=== PATIENT | female | born 1935 | race Caucasian/White ===

== ENCOUNTER 2017-12-03 12:10 | Inpatient (IN) | payer OTHER ==
[~2017-12-03] VITALS: Ht 154.9 cm; Wt 62.2 kg
[2017-12-03] VITALS (20 sets, daily range): BP systolic 72–117; BP diastolic 30–195
[2017-12-03] MEDS: LEVOFLOXACIN 250 MG/D5 PREMIX 50 ML IV SCH (00:20)
[~2017-12-03 12:10] MED LIST: LEVOFLOXACIN 500 MG/D5W PREMIX 100 ML IV SCH
--- NOTE | 2017-12-03 12:20 | NUR ---
Pt BIB ambulance in [facility] for breathing issue, pt is aphasic. Pt has G-tube. Pt is altered x 2 days. Pt has trach, She has swelling on arm, non-pitting. Diaz cath was inserted. BP 95/35, O2 98%, HR 110, RR 35. YANELY Mtz and YANELY Melendez at bedside.
[2017-12-03] MEDS ORDERED: NACL 0.9% 1,500 ML IV SCH (12:28)
[2017-12-03] MEDS ORDERED: OSELTAMIVIR PHOSPHATE 75 MG CAP GT ONE (12:30)
[2017-12-03] MEDS ORDERED: ACETAMINOPHEN 650 MG/20.3 ML UDC GT ONE (12:30)
[2017-12-03] MEDS ORDERED: PIPERACILLIN/TAZOBACTAM 3.375 GM in DEXTROSE 5% 50 ML IV ONE (12:30)
--- NOTE | 2017-12-03 12:30 | NUR ---
# 16 FR Diaz catheter with 10 ml utilizing sterile technique. Immediate return of 10 ml yellow urine noted. Bedside drainage bag placed below level of bladder. Urine sample collected and sent to lab. Pt tolerated procedure well.
[2017-12-03] MEDS ORDERED: ACET-2869 PO (12:38)
[2017-12-03] MEDS ORDERED: PROC4I SUBQ (12:38)
[2017-12-03] MEDS ORDERED: FERR325E14 GT (12:38)
[2017-12-03] MEDS ORDERED: CAPT25TA10 GT (12:39)
[2017-12-03] MEDS ORDERED: AMLO10TA GT (12:39)
[2017-12-03] MEDS ORDERED: HEPA500056 SQ (12:39)
[2017-12-03] MEDS ORDERED: DOCU-299 GT (12:39)
[2017-12-03] MEDS ORDERED: MIRABULK GT (12:39)
[2017-12-03] MEDS ORDERED: ONDA4TAB GT (12:39)
[2017-12-03] MEDS ORDERED: MULT-153 GT (12:39)
[2017-12-03] MEDS ORDERED: CRAN1TAB3 GT (12:39)
[2017-12-03] MEDS ORDERED: ASCO500T45 GT (12:39)
[2017-12-03] MEDS ORDERED: ACET-2619 GT (12:39)
[2017-12-03] MEDS ORDERED: DOXY100C9 GT (12:39)
[2017-12-03] MEDS ORDERED: VITD1000 GT (12:39)
[2017-12-03] MEDS ORDERED: PIPERACILLIN/TAZOBACTAM 3.375 GM VIAL IV ONE (12:57)
--- NOTE | 2017-12-03 13:00 | NUR ---
XRAY AT BEDSIDE.
[2017-12-03 13:20] LABS: MEAN CORPUSCULAR HEMOGLOBIN 32 pg (27-31); MEAN CORPUSCULAR HGB CONC 33 g/dL (33-37); MEAN CORPUSCULAR VOLUME 99 fL (80-94); PLATELET COUNT (AUTO) 178 K/uL (140-450); RED BLOOD CELL COUNT(AUTO) 1.92 MIL/uL (4.20-5.40); RED CELL DISTRIBUTION WIDTH 17.6 % (11.6-13.7); WHITE BLOOD COUNT (AUTO) 9.2 K/uL (4.8-10.8)
--- NOTE | 2017-12-03 13:30 | NUR ---
PT BP CONTINUES TO BE IN THE 80'S/30'S; ER MD DR. ARCE NOTIFIED; WILL CONTINUE TO MONITOR.
[2017-12-03 13:40] LABS: HEMOGLOBIN 6.2 g/dL (12.0-16.0)
[2017-12-03 13:42] LABS: LYMPHOCYTES % (MANUAL) 6 % (20-46); MONOCYTES % (MANUAL) 5 % (5-12)
--- NOTE | 2017-12-03 13:53 | NUR ---
PT TAKEN TO CT VIA [facility] ACCOMPANIED BY VIN PATEL AND JUAREZ [place].
--- NOTE | 2017-12-03 14:14 | NUR ---
EFRAIN ARCE AT BEDSIDE FOR CENTRAL LINE INSERTION; CONSENT SIGNED BY EFRAIN VICTORIA AND RN.
[2017-12-03 14:50] LABS: APPEARANCE,URINE HAZY (CLEAR); BILIRUBIN,URINE NEGATIVE (NEGATIVE); BLOOD, URINE TRACE-I (NEGATIVE); COLOR,URINE YELLOW (YELLOW); LEUKOCYTE ESTERASE ,URINE NEGATIVE (NEGATIVE); NITRITE, URINE NEGATIVE (NEGATIVE); UGLUCOSE NEGATIVE (NEGATIVE)
[2017-12-03 15:03] LABS: RBC,URINE 3-10 (FEW) /HPF (0-5); WBC,URINE 0-5 (RARE) /HPF (0-5)
--- NOTE | 2017-12-03 15:10 | NUR ---
PT APPEARS TO BE RESTING COMFORTABLY IN BED; RR EVEN/UNLABORED; POSITIONED FOR COMFORT; WILL CONTINUE TO MONITOR.
[2017-12-03] MEDS ORDERED: NACL 0.9% 1,000 ML IV ONE (15:55)
[2017-12-03 16:15] LABS: ALBUMIN 0.8 g/dL (3.4-5.0); ANION GAP 13.3 (8-16); ASPARTATE AMINOTRANSFERASE 36 U/L (15-37); CARBON DIOXIDE 33.6 mmol/L (21-32); CHLORIDE 126 mmol/L (98-107); CREATININE 0.8 mg/dL (0.6-1.3); GLUCOSE 265 mg/dL (74-106); TOTAL BILIRUBIN 0.2 mg/dL (0.0-1.0)
[2017-12-03 16:18] LABS: POTASSIUM 2.9 mmol/L (3.5-5.1); SODIUM SERUM 170 mmol/L (136-145); UREA NITROGEN, BLOOD 93 mg/dL (7-18)
--- NOTE | 2017-12-03 16:49 | NUR ---
DR. GRUBBS AT BEDSIDE FOR CENTRAL LINE INSERTION; CONSENT SIGNED BY PT'S SON, YANELY PIZARRO AND DR. GRUBBS.
--- NOTE | 2017-12-03 17:37 | NUR ---
Patient will be admitted to care of DR. CHRISTIAN. Admited to ICU. Will go to room ICU 1. Belongings list completed. Report to RALPH [place] AT BEDSIDE.
--- NOTE | 2017-12-03 17:54 | NUR ---
PT TRANSFERRED FROM ER TO ICU VIA [facility] X 2 ASSISTS. PT IS LETHARGIC, NONVERBAL, UNABLE TO MAKE NEEDS KNOWN AND DOES NOT FOLLOW COMMANDS. NORMAL SINUS RHYTHM ON MONITOR. BP 82/36. TRACH TO O2 AT 5 L/MIN. NO SOB NOTED. RHONCHI AUSCULTATED ON BL UPPER LOBES, LOWER LOBES DIMINISHED. CENTRAL LINE TO RIGHT EJ TLC INTACT. PERIPHERAL LINE G22 TO RIGHT FOREARM ASYMPTOMATIC AND INTACT. ABDOMEN SOFT, NON DISTENDED, HYPOACTIVE BOWEL SOUNDS PRESENT. G-TUBE IN PLACE. GOVEA CATH IN PLACE DRAINING URINE TO GRAVITY DRAINAGE BAG. EDEMA +3 TO BUE NOTED. OPEN WOUND TO SACRAL AND RIGHT BUTTOCKS, AND DISCOLORATION TO RIGHT HIP NOTED. HOB 30 DEGREES, BED IN LOW POSITION AND CALL LIGHT WITHIN REACH. WILL CONTINUE TO MONITOR.
--- NOTE | 2017-12-03 18:20 | NUR ---
DR. CHRISTIAN MADE AWARE OF DECREASED BP OF 77/36, ABNORMAL CBC AND BMP RESULTS. ORDERS RECEIVED. PHYSICIAN TO SEE PT.
[2017-12-03] MEDS ORDERED: NACL 0.9% 1,000 ML IV SCH (18:35)
[2017-12-03] MEDS ORDERED: KCL 20 MEQ/WATER INJ PREMIX 200 ML IV SCH (18:45)
--- NOTE | 2017-12-03 19:15 | NUR ---
DR. CHRISTIAN IN TO SEE AND EXAMINE PT. WILL FOLLOW UP ON ORDERS.
--- NOTE | 2017-12-03 19:30 | NUR ---
REPORT GIVEN TO LAND MANAGEMENT SUPERVISOR RN FOR CONTINUITY OF CARE. NO ACUTE DISTRESS AT THIS TIME.
--- NOTE | 2017-12-03 19:30 | NUR ---
DR CHRISTIAN OBTAINED CONSENT FOR BLOOD TRANSFUSION OVER THE PHONE, YANELY BUCKLEY WITNESSED.
--- NOTE | 2017-12-03 19:30 | NUR ---
RECEIVED REPORT FROM DAY SHIFT ICU NURSE. PT IS NONVERBAL, AND UNABLE TO FOLLOW COMMANDS. TRACH TO VENT O2 AT 5L. RIGHT IJ TRIPLE LUMEN CENTRAL LINE, INTACT, AND 22G IV TO RIGHT FOREARM. PT HAS GTUBE IN PLACE WITHOUT FEEDINGS AT THE TIME. PT HAS GOVEA CATHETER IN PLACE WITH CLEAR YELLOW URINE IN BAG. EDEMA 3+ TO UPPER EXTREMITIES. PRESSURE ULCERS TO RIGHT BUTTOCK AND SACRUM. NO SIGNS OF DISTRESS NOTED. BED IN LOWEST POSITION, CALL LIGHT WITHIN REACH. WILL CONTINUE TO MONITOR.
[2017-12-03] MEDS: NACL 0.45% 1,000 ML IV SCH (19:55)
--- NOTE | 2017-12-03 20:06 | NUR ---
POTASSIUM NOW INFUSING, PT TOLERATING WELL. WILL CONTINUE TO MONITOR.
[2017-12-03 20:15] LABS: ANION GAP 13.8 (8-16); CARBON DIOXIDE 30.9 mmol/L (21-32); CHLORIDE 127 mmol/L (98-107); CREATININE 0.7 mg/dL (0.6-1.3); GLUCOSE 178 mg/dL (74-106)
[2017-12-03 20:20] LABS: POTASSIUM 2.7 mmol/L (3.5-5.1); SODIUM SERUM 169 mmol/L (136-145); UREA NITROGEN, BLOOD 86 mg/dL (7-18)
--- NOTE | 2017-12-03 20:30 | NUR ---
PLACED ON 40 AREOSOL MIST VIA T-PIECE, SAO2 99%, NO RESP DISTRESS NOTED
[2017-12-03] MEDS ORDERED: POTASSIUM CHL 40 MEQ/ D5-1/2NS 1,000 ML IV SCH (20:55)
--- NOTE | 2017-12-03 21:15 | NUR ---
TITRATED LEVOPHED UP TO 10MCG/MIN, OR 37.5ML/HR DUE TO DECREASED BP OF 76/39.
--- NOTE | 2017-12-03 21:15 | NUR ---
BLOOD TRANSFUSION STARTED. VERIFIED WITH RN CAMERON. WILL MONITOR FOR ANY REACTION, AND MONITOR VITAL SIGNS DURING TRANSFUSION.
--- NOTE | 2017-12-03 22:03 | NUR ---
DECREAES FIO2 TO 35% AEROSOL MIST VIA T-PIECE SAO2 97% RR 14BPM HR 95
--- NOTE | 2017-12-03 23:00 | NUR ---
NO RESIDUAL FROM GTUBE. FLUSHED GTUBE WITH 250ML OF WATER. PT TOLERATED WELL.
--- NOTE | 2017-12-03 23:30 | NUR ---
PAGED DR. CHRISTIAN TO CLARIFY HIS ORDERS; ACCORDING TO HIM JUST TO GIVE ANOTHER 40 MEQ K RIDER CONTINUE THE SAME ON GOING IV FLUID WHICH IS 1/2 NS 100 ML/HR AND TO DISREGARD HIS ORDERS OF D5 1/2 NS WITH KCL.; CARRIED OUT.
[2017-12-03] MEDS ORDERED: VANCOMYCIN PER PHARMACY MC PRN (23:40)
[2017-12-03] MEDS ORDERED: KCL 20 MEQ/WATER INJ PREMIX 200 ML IV ONE (23:45)
--- NOTE | 2017-12-03 23:55 | NUR ---
BLOOD FINISHED TRANSFUSING, PT TOLERATED WELL. NO REACTIONS OCCURRED. NO SIGNS OF DISTRESS NOTED, WILL CONTINUE TO MONITOR.
[2017-12-04] VITALS (95 sets, daily range): BP systolic 70–115; BP diastolic 33–60
[2017-12-04] MEDS ORDERED: VANCOMYCIN HCL 750 MG in DEXTROSE 5% 250 ML IV SCH (00:15)
[2017-12-04 00:29] LABS: ANION GAP 13.6 (8-16); CHLORIDE 125 mmol/L (98-107); CREATININE 0.8 mg/dL (0.6-1.3); GLUCOSE 196 mg/dL (74-106); POTASSIUM 3.6 mmol/L (3.5-5.1)
[2017-12-04] MEDS ORDERED: VANCOMYCIN 1,000 MG VIAL ONE (00:42)
[2017-12-04] MEDS ORDERED: PIPERACILLIN/TAZOBACTAM 2.25 GM VIAL IV ONE (00:42)
[2017-12-04 00:43] LABS: SODIUM SERUM 165 mmol/L (136-145); UREA NITROGEN, BLOOD 82 mg/dL (7-18)
--- NOTE | 2017-12-04 02:00 | NUR ---
NO RESIDUAL FROM GTUBE. FLUSHED GTUBE WITH 250ML OF WATER. PT TOLERATED WELL.
[2017-12-04] MEDS: NOREPINEPHRINE 4 MG in DEXTROSE 5% 250 ML IV PRN ×4 (02:23→23:18)
[2017-12-04] MEDS ORDERED: THERAHONEY GEL 42.5 GM TP PRN (03:00)
[2017-12-04] MEDS ORDERED: HYDRAGUARD CREAM TP PRN ×2 (03:00→07:28)
--- NOTE | 2017-12-04 03:55 | NUR ---
RADHA BLOOD FROM CENTRAL LINE FOR MEAT GRADER, PT TOLERATED WELL. PT STABLE, NO SIGNS OF DISTRESS NOTED. WILL CONTINUE TO MONITOR.
[2017-12-04 04:44] LABS: CARBON DIOXIDE 29.1 mmol/L (21-32); CHLORIDE 123 mmol/L (98-107); CREATININE 0.7 mg/dL (0.6-1.3); GLUCOSE 221 mg/dL (74-106); POTASSIUM 3.1 mmol/L (3.5-5.1)
--- NOTE | 2017-12-04 04:50 | NUR ---
SACRAL ULCER [id number], TUNNELING 1.5CM, UNDERMINING 3CM. RIGHT BUTTOCKS ULCER. 7CM, 9.5CM, TUNNELING 2.8, AND UNDERMINING 2.2CM. WOUND CLEANED AND DRESSING CHANGED AGAIN.
[2017-12-04] MEDS: NACL 0.45% 1,000 ML IV SCH (04:59)
--- NOTE | 2017-12-04 05:08 | NUR ---
NO RESIDUAL FROM GTUBE. FLUSHED GTUBE WITH 250ML OF WATER. PT TOLERATED WELL.
[2017-12-04 05:16] LABS: SODIUM SERUM 162 mmol/L (136-145)
[2017-12-04 05:17] LABS: UREA NITROGEN, BLOOD 74 mg/dL (7-18)
[2017-12-04] MEDS: DEXTROSE 5% IV SCH ×3 (06:14)
[2017-12-04] MEDS: TAZOBACTAM IV SCH ×3 (06:14)
[2017-12-04] MEDS: PIPERACILLIN IV SCH ×3 (06:14)
--- NOTE | 2017-12-04 06:20 | NUR ---
INFUSING SECOND 40MEQ'S OF K-RIDERS DOCTOR ORDERED BECAUSE LATEST POTASSIUM IS 3.1. WILL CONTINUE TO MONITOR.
--- NOTE | 2017-12-04 07:21 | NUR ---
ENDORSED PT TO DAY SHIFT NURSE FOR CONTINUITY OF CARE AT THIS TIME. NO S/S OF DISTRESS.
--- NOTE | 2017-12-04 07:30 | NUR ---
RECEIVED REPORT FROM NIGHT NURSE. PT IS NONVERBAL, UNABLE TO FOLLOW COMMANDS. SINUS RHYTHM ON MONITOR. T-PIECE TO HUMIDIFIED O2 OF 35%. NO SOB NOTED. CENTRAL LINE TO REJ TLC ASYMPTOMATIC, PATENT AND INTACT. 22G PERIPHERAL IV TO RIGHT ASYMPTOMATIC AND SALINE LOCKED. PT IS RECEIVING LEVOPHED DRIP AT 10 MCG/MIN AND 0.45% NS AT 100 ML/H. PEG TUBE IN PLACE. GOVEA CATH IN PLACE DRAINING CLEAR YELLOW URINE. EDEMA +3 TO BUE AND +2 TO BL FEET NOTED. DRESSING CHANGED TO PRESSURE ULCER ON SACRAL AND RIGHT BUTTOCKS. NO SIGNS OF ACUTE DISTRESS AT THIS TIME. HOB 30 DEGREES, BED IN LOW POSITION AND CALL LIGHT WITHIN REACH. WILL CONTINUE TO MONITOR.
[2017-12-04 08:03] LABS: BASOPHILS # (AUTO) 0.1 K/uL (0.00-0.22); BASOPHILS % (AUTO) 0.6 % (0.0-2.0); HEMATOCRIT 26.2 % (36-48); HEMOGLOBIN 8.6 g/dL (12.0-16.0); LYMPHOCYTES # (AUTO) 0.4 K/uL (2.5-16.5); LYMPHOCYTES % (AUTO) 4.6 % (20.5-51.1); MEAN CORPUSCULAR HEMOGLOBIN 32 pg (27-31); MEAN CORPUSCULAR HGB CONC 33 g/dL (33-37); MEAN CORPUSCULAR VOLUME 97 fL (80-94); MONOCYTES # (AUTO) 0.1 K/uL (0.8-1.0); MONOCYTES % (AUTO) 0.9 % (1.7-9.3); NEUTROPHILS # (AUTO) 8.5 K/uL (1.8-7.7); NEUTROPHILS % (AUTO) 93.9 % (42.2-75.2); PLATELET COUNT (AUTO) 174 K/uL (140-450); RED BLOOD CELL COUNT(AUTO) 2.71 MIL/uL (4.20-5.40); RED CELL DISTRIBUTION WIDTH 16.6 % (11.6-13.7); WHITE BLOOD COUNT (AUTO) 9.1 K/uL (4.8-10.8)
--- NOTE | 2017-12-04 08:50 | NUR ---
PATIENT HAS BEEN SCREENED AND CATEGORIZED HIGH NUTRITION RISK. PATIENT WILL BE SEEN WITHIN 1-2 DAYS OF ADMISSION. 12/03/17-12/04/[address]
[2017-12-04 08:53] LABS: ANION GAP 15.2 (8-16); CARBON DIOXIDE 27.3 mmol/L (21-32); CHLORIDE 121 mmol/L (98-107); CREATININE 0.7 mg/dL (0.6-1.3); GLUCOSE 212 mg/dL (74-106); POTASSIUM 3.5 mmol/L (3.5-5.1)
[2017-12-04] MEDS: OSELTAMIVIR PHOSPHATE 75 MG CAP PO SCH (08:53)
--- NOTE | 2017-12-04 09:30 | NUR ---
MEDICATIONS ADMINISTERED. PT TOLERATED WELL.
[2017-12-04 09:42] LABS: SODIUM SERUM 160 mmol/L (136-145); UREA NITROGEN, BLOOD 72 mg/dL (7-18)
--- NOTE | 2017-12-04 09:45 | NUR ---
FAMILY AT BEDSIDE. UPDATES GIVEN. NO ACUTE DISTRESS AT THIS TIME. SAFETY PRECAUTIONS IN PLACE.
[2017-12-04] MEDS: NACL 0.9% 1,000 ML IV SCH ×2 (10:23→19:43)
--- NOTE | 2017-12-04 10:30 | NUR ---
DR. CHRISTIAN IN TO SEE AND EXAMINE PT. WILL FOLLOW UP ON ORDERS.
--- NOTE | 2017-12-04 10:35 | NUR ---
DR. GUZMAN IN TO SEE PT. WILL FOLLOW UP WITH NEW ORDERS.
--- NOTE | 2017-12-04 10:47 | NUR ---
sxn pt moderate amt of white secretions, changed water
--- NOTE | 2017-12-04 12:00 | NUR ---
REPOSITIONED AND ORAL CARE GIVEN. CHANGED WOUND DRESSING. PT TOLERATED WELL.
[2017-12-04] MEDS: PIPER/TAZO 2.25GM/D5W PREMIX 50 ML IV SCH ×3 (12:26→23:52)
[2017-12-04 12:52] LABS: ANION GAP 15.3 (8-16); CARBON DIOXIDE 26.5 mmol/L (21-32); CHLORIDE 121 mmol/L (98-107); CREATININE 0.6 mg/dL (0.6-1.3); GLUCOSE 195 mg/dL (74-106); POTASSIUM 3.8 mmol/L (3.5-5.1)
--- NOTE | 2017-12-04 12:59 | NUR ---
RECEIVED CRITICAL LAB LATIC ACID= 4.1. PRIMARY RN SABINE NOTIFIED.
--- NOTE | 2017-12-04 13:00 | NUR ---
DR. GUZMAN MADE AWARE OF BMP AND LACTIC ACID RESULTS. ORDERS RECEIVED.
[2017-12-04 13:01] LABS: SODIUM SERUM 159 mmol/L (136-145); UREA NITROGEN, BLOOD 71 mg/dL (7-18)
[2017-12-04] MEDS: HYDRAGUARD CREAM TP SCH ×2 (13:30→20:29)
[2017-12-04] MEDS: THERAHONEY GEL 42.5 GM TP SCH (13:30)
--- NOTE | 2017-12-04 14:05 | NUR ---
REPOSITIONED AND DRESSING CHANGED FOR WOUNDS. PT TOLERATED WELL. VITAL SIGNS STABLE. SAFETY PRECAUTIONS IN PLACE. WILL CONTINUE TO MONITOR.
--- NOTE | 2017-12-04 14:17 | NUR ---
CM NOTE PER STRATIGRAPHER RYAN, REVIEWS SHOULD ONLY BE SENT TO [facility]. INITIAL REVIEW FAXED TO [facility] [phone] [facility]# [phone].
--- NOTE | 2017-12-04 14:37 | NUR ---
NO CHANGE OF CONDITION AT THIS TIME. VITAL SIGNS STABLE. AFEBRILE. SAFETY MEASURES ENSURED. WILL CONTINUE TO MONITOR.
--- NOTE | 2017-12-04 14:58 | NUR ---
12/04/2017 RD INITIAL ASSESSMENT COMPLETED PLEASE REFER TO NUTRITION ASSESSMENT UNDER CARE ACTIVITY FOR ESTIMATED NUTRITIONAL NEEDS. ONCE ABLE TO RESTART TUBE FEEDS, CONSIDER: NUTREN PULMONARY @ 45 ML/HR THIS WILL PROVIDE 1620 KCALS AND 73 GM PRO/DAY TO MEET 100% ESTIMATED ENERGY AND PROTEIN NEEDS/DAY RD TO FOLLOW-UP IN 2-3 DAYS PATIENT IS HIGH RISK. EMMA ARNOLD RD Addendum: 12/04/17 at [address] SPOKE WITH CHARGE NURSE, LELO, PROVIDED PRINT-OUT OF TUBE FEED RECOMMENDATION FOR WHEN PT IS READY
[2017-12-04 15:59] LABS: ANION GAP 12.7 (8-16); CARBON DIOXIDE 28.1 mmol/L (21-32); CHLORIDE 121 mmol/L (98-107); CREATININE 0.6 mg/dL (0.6-1.3); GLUCOSE 199 mg/dL (74-106); POTASSIUM 3.8 mmol/L (3.5-5.1); SODIUM SERUM 158 mmol/L (136-145)
[2017-12-04 16:03] LABS: UREA NITROGEN, BLOOD 71 mg/dL (7-18)
--- NOTE | 2017-12-04 18:27 | NUR ---
DR. GRUBBS IN TO SEE PT. WILL FOLLOW UP ON ORDERS.
--- NOTE | 2017-12-04 18:30 | NUR ---
DR. CHRISTIAN IN TO SEE AND EXAMINE PT. UPDATES GIVEN. WILL FOLLOW UP ON ORDERS.
--- NOTE | 2017-12-04 19:10 | NUR ---
BP 75/49, TITRATED LEVOPHED TO 12MCG/MIN, 45ML/HR.
--- NOTE | 2017-12-04 19:30 | NUR ---
REPORT GIVEN TO NIGHT NURSE FOR CONTINUITY OF CARE. NO ACUTE DISTRESS AT THIS TIME.
--- NOTE | 2017-12-04 19:31 | NUR ---
RECEIVED REPORT FROM DAY SHIFT ICU NURSE. PT IS NONVERBAL, AND UNABLE TO FOLLOW COMMANDS, PERRL. TRACH TO VENT O2 AT 10L, FIO2 30%. RIGHT IJ TRIPLE LUMEN CENTRAL LINE, INTACT WITH GOOD BLOOD RETURN AND 22G IV TO RIGHT FOREARM. PT HAS GTUBE IN PLACE WITHOUT FEEDINGS AT THE TIME. PT HAS GOVEA CATHETER IN PLACE WITH CLEAR YELLOW URINE IN BAG. EDEMA 3+ TO UPPER AND LOWER EXTREMITIES. PRESSURE ULCERS TO RIGHT BUTTOCK AND SACRUM. NO SIGNS OF DISTRESS NOTED. BED IN LOWEST POSITION, CALL LIGHT WITHIN REACH. WILL CONTINUE TO MONITOR.
[2017-12-04 19:40] LABS: ANION GAP 14.4 (8-16); CARBON DIOXIDE 28.3 mmol/L (21-32); CHLORIDE 119 mmol/L (98-107); CREATININE 0.6 mg/dL (0.6-1.3); GLUCOSE 201 mg/dL (74-106); POTASSIUM 3.7 mmol/L (3.5-5.1); SODIUM SERUM 158 mmol/L (136-145)
[2017-12-04 19:48] LABS: UREA NITROGEN, BLOOD 71 mg/dL (7-18)
--- NOTE | 2017-12-04 20:15 | NUR ---
DAUGHTER CALLED. UPDATE GIVEN AND QUESTIONS ANSWERED.
[2017-12-04] MEDS: LEVOFLOXACIN 250 MG/D5 PREMIX 50 ML IV SCH (20:29)
--- NOTE | 2017-12-04 21:30 | NUR ---
TUBE FEEDING STARTED AT 10ML/HR. WILL MONITOR TOLERANCE.
--- NOTE | 2017-12-04 22:40 | NUR ---
SPOKE TO DR GUZMAN ABOUT PATIENT'S LABS. SAID HE WOULD CALL BACK AT MIDNIGHT TO CHECK ON RESULTS FOR 23:00 LABS.
--- NOTE | 2017-12-04 22:48 | NUR ---
CALLED DR GUZMAN BACK TO TELL HIM THERE ARE NO 23:[address] GUZMAN SAID HE WANTED LABS EVERY 4 HOURS, WHEN ASKED FOR HOW LONG HE SAID 48HRS, AND HE WANTED THE 23:00 RESULTS FOR TONIGHT BY MIDNIGHT SO HE SAID TO ORDER LABS STAT.
[2017-12-04 23:30] LABS: ANION GAP 14.4 (8-16); CARBON DIOXIDE 26.1 mmol/L (21-32); CHLORIDE 120 mmol/L (98-107); CREATININE 0.6 mg/dL (0.6-1.3); GLUCOSE 212 mg/dL (74-106); POTASSIUM 3.5 mmol/L (3.5-5.1); SODIUM SERUM 157 mmol/L (136-145)
--- NOTE | 2017-12-04 23:30 | NUR ---
DR FREITAS IN THE UNIT; UPDATED ON PTS PRESENT CONDITION. PER DR FREITAS, OK TO GIVE FLU AND PNEUMONIA VACCINE TO THE PT.
[2017-12-04 23:32] LABS: UREA NITROGEN, BLOOD 70 mg/dL (7-18)
[2017-12-05] VITALS (82 sets, daily range): BP systolic 80–132; BP diastolic 31–89
--- NOTE | 2017-12-05 00:05 | NUR ---
TITRATED LEVOPHED TO 14MCG/MIN, OR 52.5ML/HR. PT BP 87/44.
--- NOTE | 2017-12-05 02:00 | NUR ---
PT ASLEEP;REPOSITIONED.NO DISTRESS NOTED.FLACC 0
[2017-12-05] MEDS: VANCOMYCIN 750 MG in DEXTROSE 5% 250 ML IV SCH (02:03)
[2017-12-05 03:33] LABS: ANION GAP 14.8 (8-16); CARBON DIOXIDE 25.7 mmol/L (21-32); CHLORIDE 117 mmol/L (98-107); CREATININE 0.6 mg/dL (0.6-1.3); GLUCOSE 267 mg/dL (74-106); POTASSIUM 3.5 mmol/L (3.5-5.1); SODIUM SERUM 154 mmol/L (136-145)
[2017-12-05 03:42] LABS: UREA NITROGEN, BLOOD 69 mg/dL (7-18)
--- NOTE | 2017-12-05 04:30 | NUR ---
MORNING CARE DONE.ORAL CARE RENDERED.FLACC 0. DRESSINGS TO SACRO COCCYGEAL AREA CHANGED.REPOSITIONED.
[2017-12-05] MEDS ORDERED: NOREPINEPHRINE 4 MG/4 ML VIAL IV ONE (05:15)
[2017-12-05] MEDS: NOREPINEPHRINE 4 MG in DEXTROSE 5% 250 ML IV PRN ×2 (05:19→11:15)
[2017-12-05] MEDS: PIPER/TAZO 2.25GM/D5W PREMIX 50 ML IV SCH ×4 (05:20→23:52)
--- NOTE | 2017-12-05 06:42 | NUR ---
PT ASLEEP;STILL ON TRACH TO T PIECE 30% FIO2.SCANTY WHITISH SECRETIONS SUCTIONED.TLC TO RT IJ INTACT WITH GOOD BLOOD RETURN TO ALL 3 PORTS, INFUSING ORDERED IVF AND LEVOPHED 4MG IN 250ML D5W AT 14MCG/MIN.GTUBE INTACT.NO RESIDUAL NOTED.STILL ON NUTREN PULMONARY AT 45ML/HR WITH 250ML WATER FLUSH Q4HRS. GOVEA CATHETER INTACT, YELLOW URINE NOTED.FLACC 0
--- NOTE | 2017-12-05 06:57 | NUR ---
RECIVED PT TRACHED SHILEY 8 CUFF DEFLATED TRACH SITE SECURE NO RESP DISTRESS NOTED WILL CONTINUE TO MONITOR PT
--- NOTE | 2017-12-05 07:30 | NUR ---
RECEIVED PT FROM ENTRY EXAMINER RN. PT OPENS EYES, UNABLE TO FOLLOW COMMANDS. NON RESPONSIVE TO NAME STIMULI. NON VERBAL, PUPILS 3 MM , REACTIVE.BEDSIDE MONITOR SHOWS SR. TRACH TO T-PIECE WITH O2 10 L/MIN, NO S/S OF RESPIRATORY DISTRESS NOTED. RIGHT IJ TLC RUNNING LEVOPHED AT 14 MCG/MIN AND 0.9 NS AT 100 MLS/HR. SITE IN TACT AND PATENT, GENERALIZED PITTING EDEMA + 3 NO0TED. F/C IN PLACE WITH SMALL AMOUNT OF YELLOW URINE NOTED. PT UNABLE TO MOVE ALL HER EXTREMITIES, SKIN NON INTACT( SEE WOUND ASSESSMENT), HOB ELEVATED 30 DEGREES WITH LOW BED POSITION. WILL CONTINUE TO MONITOR.
--- NOTE | 2017-12-05 08:00 | NUR ---
WOUND CARE EVALUATION NOTE: REASON FOR EVALUATION : PRESSURE ULCER WOUNDS COMPLETE SKIN ASSESSMENT DONE ON THIS 82 Y/O FEMALE PATIENT [place] [facility] [place] [facility], WITH INITIAL DIAGNOSIS OF MENTAL STATUS CHANGE. PAST MEDICAL HISTORY INCLUDE HYPERTENSION, CVA AND COPD. ALL ABOVE INFORMATION OBTAINED FROM THE ADMISSION H&P. LABS ARE WBC 9.1, H/H 8.6/26.2, GLUCOSE 267 AND ALBUMIN 0.8.SKIN WARM TO TOUCH , SKIN TURGOR POOR. CAPILLARY REFILLED <3 SEC. TOENAILS ARE SHORT AND THICKENED, NO HAIR GROWTH, BILATERAL DORSAL PEDAL PULSES PRESENT. PLAN OF CARE DISCUSSED WITH PRIMARY RN. INTEGUMENTARY: -TRACH IN PLACE, PERISTOMA SKIN CLEAN AND INTACT -GT IN PLACE, PERISTOMA SKIN CLEAN AND INTACT -SACRALCOCCYX UN-STAGEABLE PRESSURE INJURY 10X9CM DEPTH UTD, WOUND BED BLACK AND DARK BROWN SOFT SLOUGH WITH STRONG ODOR, HEAVY PURULENT DRAINAGE. CENTER OF WOUND BLACK IN COLOR AND HARD TO TOUCH, POSSIBLE WITH BONE EXPOSED. SURROUNDING REDNESS 15X10 CM AND REDNESS DIFFUSED TO RIGHT BUTTOCK. FURTHER DAMAGE INDICATED. -RIGHT BUTTOCK UN-STAGEABLE PRESSURE ULCER INJURY 7X10CM DEPTH UTD, WOUND BED BLACK SOFT SLOUGH WITH STRONG ODOR, HEAVY PURULENT DRAINAGE. SURROUNDING REDNESS [id number] AND REDNESS DIFFUSED TO SACRALCOCCYX REGION. FURTHER DAMAGE INDICATED. -PERINEUM AND PERIANAL MAD -RIGHT HIP MULTIPLE DTI LARGEST MEASURED 0.5X0.5, SURROUNDING REDNESS AREA 5X5 CM WITH FURTHER DAMAGE INDICATED -LEFT AND RIGHT HEELS- BLANCHABLE REDNESS RECOMMENDATIONS: -SURGEON TO CONSULT SURGICAL DEBRIDEMENT -WOUND VAC THERAPY AFTER DEBRIDEMENT AND NEGATIVE FROM OSTEOMYELITIS. -CLEANSE SACRALCOCCYX TO RIGHT BUTTOCK UN-STAGEABLE PRESSURE ULCER INJURY WITH WOUND CARE SOLUTION, APPLY THERAHONEY WITH ADAPTIC DRESSING COVER WITH ABD PAT BID AND PRN IF SOILING -APPLY SKIN PREP TO RIGHT HIP DTI BIDWC AND LEAVE IT OPEN TO AIR -CLEANSE PERINEUM AND PERIANAL MAD WITH SOAP AND WATER, APPLY HYDRAGUARD BIDWC AND PRN IF SOILING -RECTAL BAG FOR MOISTURE CONTROL -TURN AND REPOSITION PATIENT Q 2H, OFFLOAD SACRALCOCCYX, RIGHT BUTTOCK AND RIGHT HIP -ASSESS AND MONITOR SKIN CONDITION DURING POSITION CHANGE -OFFLOAD BILATERAL HEELS BY PLACING PILLOWS UNDER CALVES AT ALL TIMES, UNLESS OTHERWISE CONTRAINDICATED -PRESSURE REDISTRIBUTION SURFACE THERAPY -KEEP SKIN CLEAN AND DRY AT ALL TIMES. MAY APPLY BODY LOTION TO DRYNESS AREA. RECOMMENDATIONS DISCUSSED WITH PRIMARY RN WILL FOLLOW UP PATIENT Q7- 10 DAYS AND PRN. PLEASE CONTACT WOUND CARE NURSE FOR ANY QUESTIONS AND CHANGES IN SKIN CONDITION.
[2017-12-05] MEDS: OSELTAMIVIR PHOSPHATE 75 MG CAP PO SCH (08:36)
[2017-12-05] MEDS ORDERED: PROBIOTIC SCREEN 1 EA MISC MC PRN (08:45)
[2017-12-05 08:53] LABS: BASOPHILS % (AUTO) 0.5 % (0.0-2.0); EOSINOPHILS % (AUTO) 0.1 % (0.0-4.0); HEMATOCRIT 25.3 % (36-48); HEMOGLOBIN 8.3 g/dL (12.0-16.0); LYMPHOCYTES # (AUTO) 0.5 K/uL (2.5-16.5); LYMPHOCYTES % (AUTO) 5.9 % (20.5-51.1); MEAN CORPUSCULAR HEMOGLOBIN 32 pg (27-31); MEAN CORPUSCULAR HGB CONC 33 g/dL (33-37); MEAN CORPUSCULAR VOLUME 98 fL (80-94); MONOCYTES # (AUTO) 0.1 K/uL (0.8-1.0); MONOCYTES % (AUTO) 1.2 % (1.7-9.3); NEUTROPHILS % (AUTO) 92.3 % (42.2-75.2); PLATELET COUNT (AUTO) 86 K/uL (140-450); RED BLOOD CELL COUNT(AUTO) 2.58 MIL/uL (4.20-5.40); RED CELL DISTRIBUTION WIDTH 16.4 % (11.6-13.7)
[2017-12-05] MEDS: LACTOBACILLUS RHAMNOSUS GG 1 EACH CAP PO SCH (08:54)
[2017-12-05] MEDS: HYDRAGUARD CREAM TP SCH ×2 (09:00→20:18)
[2017-12-05 09:03] LABS: ANION GAP 16.8 (8-16); CARBON DIOXIDE 23.7 mmol/L (21-32); CHLORIDE 116 mmol/L (98-107); CREATININE 0.7 mg/dL (0.6-1.3); GLUCOSE 263 mg/dL (74-106); POTASSIUM 3.5 mmol/L (3.5-5.1); SODIUM SERUM 153 mmol/L (136-145)
[2017-12-05 09:12] LABS: UREA NITROGEN, BLOOD 71 mg/dL (7-18)
[2017-12-05] MEDS: NACL 0.9% 1,000 ML IV SCH ×3 (09:30→20:20)
[2017-12-05 09:40] LABS: WHITE BLOOD COUNT (AUTO) 8.6 K/uL (4.8-10.8)
--- NOTE | 2017-12-05 10:05 | NUR ---
TURNED AND REPOSITIONED PT, NO S/S OF RESPIRATORY DISTRESS NOTED.
--- NOTE | 2017-12-05 11:48 | NUR ---
CM NOTE CONCURRENT REVIEW FAXED TO [facility] [phone] [facility]# [phone].
--- NOTE | 2017-12-05 12:22 | NUR ---
TURNED AND REPOSITIONED PT, NO S/S OF RESPIRATORY DISTRESS NOTED. ORAL CARE GIVEN. SUCTIONED PT WITH SMALL AMOUNT OF SECRETION NOTED.
[2017-12-05 12:44] LABS: CARBON DIOXIDE 24.4 mmol/L (21-32); CHLORIDE 116 mmol/L (98-107); CREATININE 0.6 mg/dL (0.6-1.3); GLUCOSE 251 mg/dL (74-106); POTASSIUM 3.4 mmol/L (3.5-5.1); SODIUM SERUM 151 mmol/L (136-145)
[2017-12-05 12:45] LABS: UREA NITROGEN, BLOOD 72 mg/dL (7-18)
[2017-12-05] MEDS: THERAHONEY GEL 42.5 GM TP SCH (13:00)
--- NOTE | 2017-12-05 14:00 | NUR ---
IN TO SEE PT, UPDATED PT'S CONDITION. PER DR. GRUBBS, PT NPO AFTER MIDNIGHT, WILL CARRY OUT.
[2017-12-05] MEDS ORDERED: POTASSIUM CHLORIDE 20% 40 MEQ/15 ML UDC GT SCH (14:30)
[2017-12-05] MEDS ORDERED: HYDRAGUARD CREAM TP PRN (14:40)
[2017-12-05] MEDS ORDERED: THERAHONEY GEL 42.5 GM TP PRN (14:40)
--- NOTE | 2017-12-05 15:46 | NUR ---
TURNED AND REPOSITIONED PT, NO S/S OF RESPIRATORY DISTRESS NOTED. NO SITUATION CHANGE.
[2017-12-05] MEDS: NOREPINEPHRINE 8 MG in DEXTROSE 5% 250 ML IV PRN (17:05)
--- NOTE | 2017-12-05 18:00 | NUR ---
TURNED AND REPOSITIONED PT, NO S/S OF RESPIRATORY DISTRESS NOTED.
[2017-12-05] MEDS ORDERED: MAGNESIUM CITRATE 300 ML BTL PO SCH (19:15)
--- NOTE | 2017-12-05 19:15 | NUR ---
DR CALVIN;GI, AT BEDSIDE.PT EXAMINED.UPDATED ON PTS PRESENT CONDITION.NEW ORDERS RECEIVED.CARRIED OUT. Addendum: 12/05/17 at 2053 by Poonam Gamez RN PER DR CALVIN; INCREASE TUBE FEEDING TO 65ML/HR.
[2017-12-05] MEDS ORDERED: ALBUMIN HUMAN 25% 100 ML IV SCH (19:20)
[2017-12-05] MEDS ORDERED: FUROSEMIDE 20 MG/2 ML VIAL IVP SCH (19:20)
--- NOTE | 2017-12-05 19:20 | NUR ---
ASSUMED CARE OF PT.INITIAL ASSESSMENT COMPLETED.PT LETHARGIC.SR TO ST ON MONITOR.TRACH TO T PIECE FIO2 30%.ORAL CARE DONE.SECRETIONS SUCTIONED.TLC TO RT IJ INTACT,GOOD BLOOD RETURN TO ALL 3 PORTS INFUSING ORDERED IVF AND LEVOPHED 8MG IN 250ML D5W AT 14MCG/MIN(26.25ML/HR).GTUBE INTACT.NO RESIDUALS NOTED.CONTINUOUS GTUBE FEEDING NUTREN PULMONARY AT 65ML/HR AND WATER FLUSH 150ML Q2HRS ORDERED.GOVEA CATHETER TO BSD DRAINING SMALL AMT OF YELLOW URINE.DRESSING TO SACROCOCCYGEAL AND BUTTOCKS SATURATED.CHANGED.GENERALIZED PITTING EDEMA NOTED.FLACC 0
[2017-12-05] MEDS: LACTULOSE 20 GM/30 ML UDC PO SCH (20:18)
[2017-12-05] MEDS: LEVOFLOXACIN 250 MG/D5 PREMIX 50 ML IV SCH (20:18)
--- NOTE | 2017-12-05 22:00 | NUR ---
PT REPOSITIONED.NO DISTRESS NOTED.STILL ON LEVOPHED DRIP 8MG IN 250ML D5W AT 14 MCG/MIN.NO BM NOTED AT THIS TIME.REPOSITIONED
--- NOTE | 2017-12-05 23:08 | NUR ---
INCREASED FIO2 TO 40% DUE TO LOW SPO2 90%. YANELY KIM AT BEDSIDE. NO DISTRESS NOTED. WILL CONTINUE TO MONITOR.
[2017-12-06] VITALS (97 sets, daily range): BP systolic 56–125; BP diastolic 22–66
--- NOTE | 2017-12-06 | NUR ---
G TUBE FEEDING TURNED OFF;FLUSHED. PT NOW NPO FOR DEBRIDEMENT OF SACROCOCCYX AND PERIANAL DECUBITUS WOUNDS/GANGRENE IN AM. WITH SIGNED CONSENT IN THE CHART. ORAL CARE USING VAP KIT RENDERED.NO BM NOTED AT THIS TIME.REPOSITIONED.NO SOB NOTED.02SAT 95% AT THIS TIME ON FIO2 40% TRACH TO T PIECE.FLACC 0
[2017-12-06] MEDS: HYDRAGUARD CREAM TP SCH ×4 (00:38→20:10)
[2017-12-06] MEDS: THERAHONEY GEL 42.5 GM TP SCH ×2 (00:38→13:00)
--- NOTE | 2017-12-06 01:15 | NUR ---
PT APPEARS TO BE GASPING; 02SAT DOWN TO 88% TO 90%; PT SUCTIONED.CALLED RT
--- NOTE | 2017-12-06 01:30 | NUR ---
RT HANI AT BEDSIDE.PT SUCTIONED.PUT ON FIO2 100% AT THIS TIME.
[2017-12-06] MEDS: VANCOMYCIN 750 MG in DEXTROSE 5% 250 ML IV SCH (01:45)
[2017-12-06] MEDS: NOREPINEPHRINE 8 MG in DEXTROSE 5% 250 ML IV PRN ×4 (01:55→21:53)
--- NOTE | 2017-12-06 01:59 | NUR ---
PATIENT NOTED TO BE GASPING, ON TRACH TO TPIECE, RESPIRATORY THERAPIST MORENA CALLED TO COME AND ASSESSED THE PATIENT. DR. TAMEZ (POWERHOUSE ENGINEER) PAGED AND RT INFORMED MD REGARDING PATIENT'S CONDITION, DR. TAMEZ ORDERED TO PUT PATIENT ON VENTILATOR WITH SETTINGS OF AC 14, TV400, FIO2 100%, PEEP5 AND ABG.
--- NOTE | 2017-12-06 02:13 | NUR ---
GOT CALL FROM RN THAT PT SPO2 IS 91% AND GAPING FOR AIR. INCREASED FIO2 TO 40% AND 100% WITH NO CHANGE. RT BERG TALKED TO MD AND PER DR TO PUT PT ON VENT AC 12,400,100%,+5 AND TO TITRATES FIO2 TOLERATED. PT ON VENT AND STILL GASPING FOR AIR. VENT IS CONNECTED TO RED OUTLET. ALARMS ARE FUNCTIONING. AMBU BAG AT BEDSIDE. SPUTUM SAMPLE DONE AND SENT TO LAB. Addendum: 12/06/17 at 0253 by Gracy Banegas RT RN CALLED RT BERG
--- NOTE | 2017-12-06 04:33 | NUR ---
MORNING CARE DONE.ORAL CARE RENDERED.MAINTAINED ON NPO.FLACC 0
[2017-12-06 05:13] LABS: BASOPHILS # (AUTO) 0.1 K/uL (0.00-0.22); BASOPHILS % (AUTO) 0.7 % (0.0-2.0); HEMATOCRIT 22.3 % (36-48); HEMOGLOBIN 7.5 g/dL (12.0-16.0); LYMPHOCYTES # (AUTO) 0.4 K/uL (2.5-16.5); LYMPHOCYTES % (AUTO) 4.9 % (20.5-51.1); MEAN CORPUSCULAR HEMOGLOBIN 33 pg (27-31); MEAN CORPUSCULAR HGB CONC 34 g/dL (33-37); MEAN CORPUSCULAR VOLUME 97 fL (80-94); MONOCYTES # (AUTO) 0.1 K/uL (0.8-1.0); MONOCYTES % (AUTO) 1.3 % (1.7-9.3); NEUTROPHILS # (AUTO) 6.6 K/uL (1.8-7.7); NEUTROPHILS % (AUTO) 93.1 % (42.2-75.2); RED CELL DISTRIBUTION WIDTH 16.1 % (11.6-13.7)
[2017-12-06] MEDS: PIPER/TAZO 2.25GM/D5W PREMIX 50 ML IV SCH ×2 (05:17→12:13)
--- NOTE | 2017-12-06 05:40 | NUR ---
02SAT 98%; RT HANI AT BEDSIDE AND DECREASED FIO2 TO 40%.WILL CONTINUE TO MONITOR PT.
[2017-12-06 06:06] LABS: CARBON DIOXIDE 26.4 mmol/L (21-32); CHLORIDE 113 mmol/L (98-107); CREATININE 0.7 mg/dL (0.6-1.3); GLUCOSE 253 mg/dL (74-106); POTASSIUM 3.4 mmol/L (3.5-5.1); SODIUM SERUM 151 mmol/L (136-145)
--- NOTE | 2017-12-06 06:20 | NUR ---
PT LETHARGIC.SR ON MONITOR.TRACH TO VENT FIO2 40% TV 400 AC14 PEEP 5.NOTHING BY MOUTH MAINTAINED.TLC WITH GOOD BLOOD RETURN TO ALL 3 PORTS, INFUSING ORDERED IVF AND LEVOPHED 8MG IN 250ML D5W AT 14MCG/MIN.GOVEA CATHETER INTACT.DRESSING TO SACROCOCCYGEAL INTACT.FLACC 0.
[2017-12-06 06:28] LABS: UREA NITROGEN, BLOOD 68 mg/dL (7-18)
--- NOTE | 2017-12-06 06:50 | NUR ---
PHONE CALL MADE TO PTS SON SARAH GONSALEZ ([phone]); UPDATED ON PTS PRESENT CONDITION.MADE AWARE THAT PT WAS PUT ON VENT AT 0200.QUESTIONS ANSWERED.
[2017-12-06 06:52] LABS: PLATELET COUNT (AUTO) 100 K/uL (140-450); WHITE BLOOD COUNT (AUTO) 7.2 K/uL (4.8-10.8)
[2017-12-06] MEDS: MIDODRINE 5 MG TAB PO SCH ×2 (07:00→12:16)
--- NOTE | 2017-12-06 07:30 | NUR ---
RECEIVED REPORT FROM GHOST WRITER RN. PT OPENS EYES, NO RESPONSIVE TO NAME STIMULI. BEDSIDE MONITOR SHOWS SR. TRACH TO VENT WITH SETTING FIO2 40%, TV 400, AC 14, PEEP 5. GASPING RESPIRATION NOTED.O2 SATS 95%. PT IS PALE. CONJUNCTIVA EDEMA NOTED. .IV TO RIGHT IJ TLC RUNNING NS AT 50 MLS/HR AND LEVOPHED AT 14 MCG/MIN ( 26.25 MLS/HR). GOVEA CATH IN PLACE WITH SMALL AMOUNT OF YELLOW URINE NOTED.ABDOMEN SOFT WITH HYPOACTIVE BOWL SOUND. GENERALIZED +3 PITTING EDEMA NOTED.PT UNABLE TO MOVE ALL HER EXTREMITIES, SKIN NON INTACT ( SEE WOUND ASSESSMENT) HOB ELEVATED 30 DEGREES,ORAL CARE RENDERED, OFF LOADING PRESSURE AREA. WILL CONTINUE TO MONITOR.
--- NOTE | 2017-12-06 08:00 | NUR ---
TURNED AND REPOSITIONED PT, DR. GRUBBS IN TO CHECK PT, MAKE AWARE PT'S VITALS AND AGONAL RESPIRATION. PER , PT IS NOT STABLE FOR DEBRIDEMENT, RESUME TUBE FEEDING, WILL CARRY OUT.
--- NOTE | 2017-12-06 08:06 | NUR ---
RECEIVED TRACH PT WITH A SHILEY 8 DCT TRACH ON VENT. SETTINGS AC 14, VT 400, PEEP 5 AND FIO2 40%. PT SUCTIONED OBTAINED SMALL AMOUNT OF THICK WHITE SECRETIONS, AIRWAY IS PATENT AND TRACH IS SECURE. VENT IS PLUGGED INTO A RED OUTLET WITH ALARMS ON AND FUNCTIONING. AMBU BAG IS PRESENT AT BEDSIDE.
--- NOTE | 2017-12-06 08:20 | NUR ---
PT BP 81/47, HR 95 O2SAT 94%, RR 27, INCREASED LEVOPHED DRIP TO 16 MCG/MIN( 30 ML/HR)
[2017-12-06] MEDS: LACTOBACILLUS RHAMNOSUS GG 1 EACH CAP PO SCH (08:24)
[2017-12-06] MEDS: LACTULOSE 20 GM/30 ML UDC PO SCH (08:25)
[2017-12-06] MEDS: SENNA 8.6 MG TAB PO SCH ×2 (08:25→12:17)
[2017-12-06] MEDS: OSELTAMIVIR PHOSPHATE 75 MG CAP PO SCH (08:25)
--- NOTE | 2017-12-06 08:50 | NUR ---
DR. CHRISTIAN IN TO SEE PT, NOTIFIED PT HAS GASPING RESPIRATION AND PT ON LEVOPHED 16 MCG/MIN AT THIS TIME. NO BM SINCE YESTERDAY. CHECKED PT THIS MORNING, PER. DR. GRUBBS PT IS NOT STABLE FOR DEBRIDEMENT. AWARE PT IS UNRESPONSIVE TO LIGHT PAIN STIMULI. PER DR. CHRISTIAN, GIVE PT LACTULOSE 20 MG BID PRN FOR BM. WILL CARRY OUT.
[2017-12-06] MEDS ORDERED: POTASSIUM CHLORIDE 20% 40 MEQ/15 ML UDC GT SCH (09:00)
[2017-12-06] MEDS ORDERED: LACTULOSE 20 GM/30 ML UDC PO PRN (09:35)
--- NOTE | 2017-12-06 09:45 | NUR ---
PT BP 83/49, HR 100, INCREASED LEVOPHED TO 18 MCG/MIN ( 33.75 MLS/HR )
--- NOTE | 2017-12-06 09:53 | NUR ---
FIO2 INCREASED TO 50% DUE TO SPO2 DECREASING TO 87%. NURSE CORNELIA QUINTEROS. WILL CONTINUE TO MONITOR.
--- NOTE | 2017-12-06 10:04 | NUR ---
INCREASED LEVOPHED DRIP TO 22 MCG/MIN ( 41.25 MLS/HR) DUE TO PT BP DROPS TO 81/49, HR 99, O2 SAT 91%. RR 28
--- NOTE | 2017-12-06 10:35 | NUR ---
BP 79/47, HR 100, O2 SAT 91 %. INCREASED LEVOPHED TO 26 MCG/MIN ( 48.75 MLS/HR)
--- NOTE | 2017-12-06 10:38 | NUR ---
CM NOTE CONCURRENT REVIEW FAXED TO [facility] [phone] [facility]# [phone].
--- NOTE | 2017-12-06 10:39 | NUR ---
PAGED DR. CHRISTIAN [phone] AGAIN, WILL FOLLOW UP.
--- NOTE | 2017-12-06 11:00 | NUR ---
CALLED , NOTIFIED HIM PT ON LEVOPHED 30 MCG/MIN STILL HYPOTENSIVE. PT HAS BAD EDEMA. ORDER RECEIVED, WILL CARRY OUT.
[2017-12-06] MEDS ORDERED: NACL 0.9% 1,000 ML IV SCH ×2 (11:05→15:30)
--- NOTE | 2017-12-06 11:15 | NUR ---
DR. CHRISTIAN AWARE LACTIC ACID 3.8
--- NOTE | 2017-12-06 11:15 | NUR ---
DR. CHRISTIAN CALLED BACK, NOTIFIED HIM PT'S CONDITION. MADE HIM AWARE DR. SOTO ORDERED NS 1L BOLUS AND VASOPRESSIN DRIP .
[2017-12-06 11:23] LABS: ANION GAP 15.8 (8-16); CHLORIDE 114 mmol/L (98-107); CREATININE 0.7 mg/dL (0.6-1.3); GLUCOSE 252 mg/dL (74-106); POTASSIUM 4.8 mmol/L (3.5-5.1); SODIUM SERUM 151 mmol/L (136-145)
[2017-12-06 11:28] LABS: UREA NITROGEN, BLOOD 75 mg/dL (7-18)
[2017-12-06] MEDS: VASOPRESSIN 20 UNITS in NACL 0.9% 250 ML IV PRN ×2 (11:30→12:05)
--- NOTE | 2017-12-06 12:15 | NUR ---
PT HAD LARGE SIZE OF WATERY BM, CLEANED PT, WHOLE BED CHANGED.
--- NOTE | 2017-12-06 13:17 | NUR ---
PT REMAINS TACHYPNEIC AT THIS TIME. NURSE CORNELIA AWARE OF PT STATUS. FIO2 60% SPO2 93%. WILL CONTINUE TO MONITOR.
--- NOTE | 2017-12-06 13:19 | NUR ---
PT SUCTIONED OBTAINED SMALL AMOUNT OF THICK WHITE/CLEAR SECRETIONS, AIRWAY IS PATENT AND TRACH IS SECURE.
--- NOTE | 2017-12-06 13:55 | NUR ---
turned and repositioned pt. DRESSING CHANGED WITH CHARGE NURSE KAMILA.
[2017-12-06] MEDS ORDERED: ALBUMIN HUMAN 25% 100 ML IV SCH (14:44)
--- NOTE | 2017-12-06 14:55 | NUR ---
I attempted to contact Patient's daughter Jeanette Bar at to introduce my self and role as SW, discuss patient's status, and urgency to see patient due to condition, as well offer support and resources for family. Mrs. Bar was not available and I left her a voice MSG with my contact information.
--- NOTE | 2017-12-06 15:00 | NUR ---
I attempted to contact Patient's son Eloy Driver at to introduce my self and role, discuss patient's status, offer support and resources for family. Mr. Driver was not available and I left him a voice MSG with my contact information.
[2017-12-06] MEDS ORDERED: PHENYLEPHRINE 10 MG/ML VIAL IV ONE (15:30)
--- NOTE | 2017-12-06 15:30 | NUR ---
CALLED DR. SOTO, NOTIFIED BP, PER BRITTANY MCCRACKEN, GIVE NS 1 L AND NEOSNEPHRINE DRIP.
[2017-12-06] MEDS ORDERED: PHENYLEPHRINE 10 MG in NACL 0.9% 250 ML IV PRN (15:35)
--- NOTE | 2017-12-06 15:39 | NUR ---
PT'S SON AND DAUGHTER IN LAW IN TO SEE PT, QUESTIONS ANSWERED, UPDATED PT'S CONDITION, PT'S SON WANTS SHORE WORKER TO PRAY FOR HIS MOM, ASHELY CALLED [employer], NO ANSWER, VOICE MESSAGE LEFT.
--- NOTE | 2017-12-06 15:55 | NUR ---
I attempted to contact Patient's daughter in law Porsha Driver at to get a hold of son and introduce my self and role, discuss patient's status, offer support and resources for family. Mrs. Driver was not available and I left a voice MSG with my contact information.
--- NOTE | 2017-12-06 16:34 | NUR ---
Social Workers Notes: In the attempt to reach family these underwriter mortgage loan notice RN note stating family is with patient. I met with the family Eloy son, Pilar Daughter in law, and Grandson at patient's bedside. I introduce myself to the family and explained my role as a certified ophthalmic medical technician. I discuss, patient's status, importance of family visit today due to patients condition. I process with the family feelings of hope and process of loss. Patient's son Eloy was upset and teary however thankful to these underwriter mortgage loan for processing feelings and resources, and support provided. took some information and my card. Mr. Driver verbalized understanding of Patients conditions, stated feeling sad, worried and overwhelmed; however wanting to keep a bit of hope for patient even if at times he feels selfish for wanting to continue hoping for patient's improvement. I normalized his feelings and offer resources for him and family processing grief and needed support. Mr. Driver stated that he is some what prepare and has called his sister Jeanette Bar who is on her way to come see patient alli. He also reported that he will be meeting and talking to a Mortuary in his area ([place]) to start making some arrangements. I inquired if his questions about patient's medical condition has been answered. He stated that he has good communication with staff and MD and all questions had been answered. I encouraged him to speak with hospital if he has any other question or concerns. He verbalized understanding and thank me for my assistance. Slag Mixer and Jet Operator will follow up as needed.
[2017-12-06] MEDS ORDERED: FUROSEMIDE 20 MG/2 ML VIAL IVP SCH (17:00)
--- NOTE | 2017-12-06 17:23 | NUR ---
PT REMAINS ON DOCUMENTED SETTINGS. VENT REMAINS PLUGGED INTO RED OUTLET WITH ALARMS ON AND FUNCTIONING. TRACH REMAINS SECURE WITH A PATENT AIRWAY.
--- NOTE | 2017-12-06 18:05 | NUR ---
TURNED AND REPOSITIONED PT WITH CHARGE NURSE, PT STILL UNRESPONSIVE TO NAME OR TACTILE STIMULI, GASPING RESPIRATION, PALE, WILL CONTINUE TO MONITOR PT.
--- NOTE | 2017-12-06 18:30 | NUR ---
1822 INCREASED FIO2 TO 100% SATS WERE 78%. PT IS AGANAL BREATHING. INCREASED FLOW TO 70
[2017-12-06] MEDS: PHENYLEPHRINE 40 MG in NACL 0.9% 250 ML IV PRN ×2 (18:36→21:54)
[2017-12-06] MEDS ORDERED: MIDODRINE 5 MG TAB PO SCH (19:00)
--- NOTE | 2017-12-06 19:15 | NUR ---
REPORT GIVEN TO CANAL EQUIPMENT MECHANIC RN.
--- NOTE | 2017-12-06 19:20 | NUR ---
PHONE CALL MADE TO DR SOTO,PULMO/LINE RUNNER, MADE AWARE PT ON LEVOPHED, VASOPRESSIN AND JHON SYNEPHRINE DRIPS ALL WITH MAXIMUM DOSE.BP STILL 84/52. ALSO PTS VENT SETTINGS FIO2 100%, ORDERED HYDROCORTISONE IVP Q8H.NO FURTHER ORDERS MADE.
--- NOTE | 2017-12-06 19:30 | NUR ---
ASSUMED CARE OF PT.INITIAL ASSESSMENT COMPLETED.PT LETHARGIC.SR TO SB ON THE MONITOR.TRACH TO VENT FIO2 100% TV400 AC14 PEEP 5. DEEP,LABORED BREATHING NOTED.GENERALIZED PITTING EDEMA +4 ON BUE AND +3 ON BLE.W/TLC TO RT IJ INTACT.GOOD BLOOD RETURN TO ALL 3 PORTS INFUSING ORDERED IVF; LEVOPHED 8MG IN 250ML D5W AT 30MCG/MIN(56.25ML/HR),JHON SYNEPHRINE 40MG IN 250ML NS AT 37.33MCG/MIN (56ML/HR),VASOPRESSIN 20 UNITS IN 250ML NS AT 0.04UNIT/MIN(30ML/HR).W/GTUBE INTACT.ON CONTINUOUS GTUBE FEEDING NUTREN PULMONARY AT 65ML/HR WITH ORDERED WATER FLUSH.RESIDUAL CHECKED,COFFEE GROUND COLOR.GTUBE FEEDING STOPPED.PT VOMITED ALSO COFFEE GROUND VOMITUS.G TUBE CONNECTED TO GTUBE DRAINAGE BAG, 500ML OF COFFEE GROUND COLORED OUTPUT NOTED.GOVEA CATHETER INTACT.SCANTY CLOUDY YELLOW URINE NOTED.DRESSING TO SACROCOCCYGEAL AREA INTACT.FLACC 0.
[2017-12-06] MEDS: LEVOFLOXACIN 250 MG/D5 PREMIX 50 ML IV SCH (20:10)
--- NOTE | 2017-12-06 20:15 | NUR ---
ORAL CARE DONE. PT STILL VOMITING COFFEE GROUND VOMITUS.SUCTIONED.REPOSITIONED.FLACC 0
[2017-12-06] MEDS ORDERED: HYDROCORTISONE NA SUCC 100 MG/2 ML VIAL IV SCH (21:00)
[2017-12-06] MEDS ORDERED: PIPER/TAZO 2.25GM/D5W PREMIX 50 ML IV SCH (21:00)
--- NOTE | 2017-12-06 21:57 | NUR ---
CODE BLUE CALLED; ER MD DR LUIS CLARK AT BEDSIDE.
--- NOTE | 2017-12-06 22:05 | NUR ---
DR CLARK SPOKE WITH PTS SON SARAH GONSALEZ; CODE STOPPED, PER MD, PTS SON SAID TO STOP THE CODE AND PLACED PT ON DNR
--- NOTE | 2017-12-06 22:06 | NUR ---
PRONOUNCED BY DR LUIS CLARK.
--- NOTE | 2017-12-06 22:10 | NUR ---
PHONE CALL MADE TO SARAH GONSALEZ, PTS SON, NOTIFIED OF . PER SARAH, NO MORTUARY YET, EXPLAINED TO HIM RE; NO MORGUE HERE IN [facility], CONTRACTED MORTUARY IS [facility].HE SAID OK TO SEND THE BODY THERE, PHONE NUMBER AND ADDRESS GIVEN TO SARAH.WITNESSED BY CR QUEEN RN, NURSING MECHANICAL MAINTENANCE SUPERVISOR.
--- NOTE | 2017-12-06 22:13 | NUR ---
PHONE CALL MADE TO [facility]ONERS OFFICE, SPOKE WITH HONG.THE CIVIL DRAFTER WILL CALL BACK HOUSE CARPENTER, AWAITING REPLY
--- NOTE | 2017-12-06 22:18 | NUR ---
PHONE CALL TO [facility].SPOKE WITH JUANY. CASE # [id number] PER JUANY, [facility] COORDINATOR WILL CALL INSTALLERS MECHANICAL TO COMPLETE THE TRIAGE.AWAITING CALL
--- NOTE | 2017-12-06 22:24 | NUR ---
PHONE CALL FROM PATERSON OF [facility]. IS NOT A CANDIDATE FOR DONATION, OK TO RELEASE THE BODY TO MORTUARY IF OK WITH SPLICER HELPER
--- NOTE | 2017-12-06 23:16 | NUR ---
2156 CODE BLUE CALLED. RT TO BAG PATIENT AT 100% FIO2. CPR BEING DONE AND ACLS DRUGS GIVEN. PT 2205
--- NOTE | 2017-12-06 23:25 | NUR ---
PHONE CALL FROM [facility] CR[facility]OST[facility], MEAL COOK. QUESTIONS ANSWERED. BODY RELEASED. CASE # [id number]
--- NOTE | 2017-12-06 23:27 | NUR ---
PHONE CALL TO [facility]; SPOKE WITH FLACO, QUESTIONS ANSWERED.OCULAR CARE AIDE TIME IS ONE TO TWO HOURS
--- NOTE | 2017-12-07 01:10 | NUR ---
BODY PICKED UP BY [facility].
[2017-12-07] MEDS ORDERED: ALBUMIN HUMAN 25% 100 ML IV SCH (08:00)
[2017-12-07] MEDS ORDERED: LACTULOSE 20 GM/30 ML UDC PO SCH (09:00)
[2017-12-07] MEDS ORDERED: SENNA 8.6 MG TAB PO SCH (09:00)
--- NOTE | 2017-12-07 12:10 | NUR ---
TURNED AND REPOSITIONED PT, NO S/S OF RESPIRATORY DISTRESS NOTED. ORAL CARE GIVEN. Addendum: 12/07/17 at 1543 by Nikita Pham RN WRONG PT.
== END 2017-12-07 01:10 | disposition expired | DRG 871 ==
LOC: MED 12:10 → MIC 16:24
PROVIDERS: ADMIT Hospitalist; ATTEND Hospitalist
PROC: 30233N1 Transfusion of Nonautologous Red Blood Cells into Peripheral Vein, Percutaneous Approach (ICD-10-PCS; principal; 2017-12-03)
PROC: 05HN33Z Insertion of Infusion Device into Left Internal Jugular Vein, Percutaneous Approach (ICD-10-PCS; 2017-12-03)
PROC: B544ZZA Ultrasonography of Left Jugular Veins, Guidance (ICD-10-PCS; 2017-12-03)
PROC: 02H633Z Insertion of Infusion Device into Right Atrium, Percutaneous Approach (ICD-10-PCS; 2017-12-03)
PROC: B244ZZZ Ultrasonography of Right Heart (ICD-10-PCS; 2017-12-03)
PROC: 5A1935Z Respiratory Ventilation, Less than 24 Consecutive Hours (ICD-10-PCS; 2017-12-06)
DX: A41.9 Sepsis, unspecified organism (principal); L89.154 Pressure ulcer of sacral region, stage 4; I46.9 Cardiac arrest, cause unspecified; R65.21 Severe sepsis with septic shock; J18.9 Pneumonia, unspecified organism; J96.10 Chronic respiratory failure, unspecified whether with hypoxia or hypercapnia; E46 Unspecified protein-calorie malnutrition; J96.11 Chronic respiratory failure with hypoxia; J96.12 Chronic respiratory failure with hypercapnia; N17.9 Acute kidney failure, unspecified; E11.52 Type 2 diabetes mellitus with diabetic peripheral angiopathy with gangrene; E87.0 Hyperosmolality and hypernatremia; Z93.0 Tracheostomy status; Z66 Do not resuscitate; D64.9 Anemia, unspecified; F03.90 Unspecified dementia, unspecified severity, without behavioral disturbance, psychotic disturbance, mood disturbance, and anxiety; E11.65 Type 2 diabetes mellitus with hyperglycemia; E78.5 Hyperlipidemia, unspecified; E87.6 Hypokalemia; I10 Essential (primary) hypertension; J44.9 Chronic obstructive pulmonary disease, unspecified; S31.502A Unspecified open wound of unspecified external genital organs, female, initial encounter; Y95 Nosocomial condition; Z86.73 Personal history of transient ischemic attack (TIA), and cerebral infarction without residual deficits; Y93.89 Activity, other specified; Y92.89 Other specified places as the place of occurrence of the external cause; Y99.8 Other external cause status; Z93.1 Gastrostomy status; Z68.25 Body mass index [BMI] 25.0-25.9, adult; E87.8 Other disorders of electrolyte and fluid balance, not elsewhere classified
CPT/HCPCS: 36415; 36600; 51702; 70450; 71045; 74018; 80048; 80053; 80202; 81001; 82272; 82550; 82553; 82728; 82803; 83540; 83605; 83874; 83880; 84484; 85025; 85610; 85730; 86886; 86900; 86901; 86920; 87040; 87070; 87081; 87086; 87186; 87804; 96361; 96365; 99291; J1720; J1940; J1956; J2370; J2543; J3370; J3480; J3490; J7030; J7060; P9016; P9046; Q0092